=== PATIENT | female | born 1985 | race Hispanic/Latino ===

== ENCOUNTER 2018-10-07 08:58 | Emergency (ER) | payer SELFPAY ==
[~2018-10-07] VITALS: Ht 149.9 cm; Wt 63.6 kg
[2018-10-07 09:48] LABS: HEMATOCRIT 23.2 % (37.0-47.0); IMMATURE GRANULOCYTES 0.3 % (0.0-5.0); MEAN CELL VOLUME 63.2 fL CALC (80.0-100.0); MEAN CORPUSCULAR HGB 16.1 pG CALC (26.0-32.0); MEAN CORPUSCULAR HGB CONC 25.4 g/L CALC (32.0-36.0); NEUT# 4.93 thou/uL (2.00-7.15); RED BLOOD COUNT 3.67 mill/uL (4.20-5.60); RED CELL DISTRI WIDTH 19.9 % (11.5-15.5)
[2018-10-07 09:50] LABS: ANION GAP 16 (6-22 (CALC)); BUN 9 mg/dL (7-17); BUN/CREATININE RATIO 22 (12-20 (CALC)); CARBON DIOXIDE 25 mmol/l (22-30); CHLORIDE 104 mmol/l (95-108); CREATININE 0.4 mg/dL (0.5-1.0); GFR > 60 ML/MIN (>=60 (CALC)); GFR FOR AFR.AMER. > 60 ML/MIN (>=60 (CALC)); POTASSIUM 4.3 mmol/l (3.5-5.1); SODIUM 140 mmol/l (137-146)
[2018-10-07 10:11] LABS: HEMOGLOBIN 5.9 g/dl (12.0-16.0)
[2018-10-07 10:43] VITALS: BP 118/48
[2018-10-07 11:02] VITALS: BP 100/50
[2018-10-07 11:08] VITALS: BP 107/68
[2018-10-07 11:09] VITALS: BP 107/68
== END 2018-10-07 11:30 | disposition short-term general hospital (02) | DRG 379 ==
LOC: ED 08:58
PROVIDERS: Family Medicine
PROC: 30233N1 Transfusion of Nonautologous Red Blood Cells into Peripheral Vein, Percutaneous Approach (ICD-10-PCS; principal; 2018-10-07)
DX: K62.5 Hemorrhage of anus and rectum (principal); D64.9 Anemia, unspecified; K64.9 Unspecified hemorrhoids
CPT/HCPCS: P9016

== ENCOUNTER 2020-06-14 13:20 | Emergency (ER) | payer SELFPAY ==
[~2020-06-14] VITALS: Ht 149.9 cm; Wt 70.0 kg
[2020-06-14] MEDS ORDERED: KEFLEX500 MG PO (14:44)
[2020-06-14] MEDS ORDERED: NAPROXEN500 MG PO (14:44)
[2020-06-14 15:09] VITALS: BP 137/83
== END 2020-06-14 15:05 | disposition home or self-care (01) | DRG 603 ==
LOC: ED 13:20
DX: L03.113 Cellulitis of right upper limb (principal)